=== PATIENT | male | born 1945 | race Caucasian/White ===

== ENCOUNTER 2021-04-08 09:12 | Inpatient (IN) | payer MEDICARE ==
[2021-04-08 10:08] LABS: #Basophils 0.1 10x3/uL (0.0-0.2); #Eosinphils 0.2 10x3/uL (0.0-0.5); #Monocytes 0.9 10x3/uL (0.0-1.1); #Neutrophils 6.1 10x3/uL (1.5-8.4); %Basophils 0.6 % (0.0-2.0); %Eosinophils 2.3 % (0.0-6.0); %Lymphocytes 21.4 % (18.0-47.0); %Monocytes 9.8 % (0.0-10.0); %Neutrophils 65.7 % (40.0-75.0); Hemoglobin 16.7 g/dL (13.5-17.5); Mean Corpuscular HGB CONC 35.3 g/dL (32.0-36.0); Mean Corpuscular Hemoglobin 30.8 pg (27.0-33.0); Mean Corpuscular Volume 87.3 fl (81.2-95.1); Mean Platelet Volume 9.9 fl (7.4-10.4); Platelet Count 179 10x3/uL (150-450); RBC Distribution Width 14.6 % (11.5-14.5); Red Blood Cell (RBC) Count 5.42 10x6/uL (4.32-5.72); White Blood Cell (WBC) Count 9.3 10x3/uL (3.5-10.5)
[2021-04-08 10:20] LABS: PTT 26.1 sec (22.0-33.0); Prothrombin Time 11.1 sec (9.5-12.1)
[2021-04-08 10:27] LABS: ALT (SGPT) 19 U/L (8-55); AST (SGOT) 19 U/L (5-34); Albumin 4.3 g/dL (3.4-4.8); Alkaline Phosphatase 56 U/L (40-110); Anion Gap 16 mmol/L (10-20); BUN (Urea Nitrogen) 18 mg/dL (8.4-25.7); Bilirubin, Total 0.6 mg/dL (0.2-1.2); Calc. Creatinine Clearance 0 mL/min (70-130); Calcium 9.8 mg/dL (7.8-10.44); Carbon Dioxide 26 mmol/L (23-31); Chloride 104 mmol/L (98-107); Globulin 3.7 g/dL (2.4-3.5); Glucose 112 mg/dL (83-110); Iron 52 ug/dL (65-175); Iron Binding Capacity, Total 290 mcg/dL (261-462); Lipase 18 U/L (8-78); Potassium 3.4 mmol/L (3.5-5.1); Sodium 143 mmol/L (136-145)
[2021-04-08 12:09] LABS: Bilirubin Neg (Negative); Blood, Urine 10 (Negative); Clarity Clear (Clear); Glucose, Urine (Dipstick) Normal (Negative); Ketone, Urine 5 mg/dL (Negative); Leukocyte Negative (Negative); Nitrite Negative (Negative); Protein, Urine (Dipstick) 100 mg/dl (Neg-Trace); Urobilinogen Normal mg/dL (Less than 2)
[2021-04-08 12:17] LABS: Bacteria/HPF Rare-Few HPF (None Seen); Mucous/LPF Rare LPF (<2+); RBC/HPF 0-3 HPF (0-3); Squamous Epithelial 0-3 HPF (0-3); WBC/HPF 0-3 HPF (0-3)
[2021-04-08] MEDS ORDERED: metroNIDAZOLE 500 MG/100 ML BAG ONE (13:50)
[2021-04-08] MEDS ORDERED: ALPRAZolam 0.5 MG TAB PO PRN (15:59)
[2021-04-08] MEDS ORDERED: Potassium Chloride 10 MEQ in Premix Bag 1 BAG IVPB SCH (16:00)
[2021-04-08] MEDS ORDERED: Electrolyte Replacement Protocol 1 EACH FS SCH (16:00)
[2021-04-08] MEDS ORDERED: Acetaminophen 325 MG TAB PO PRN (16:03)
[2021-04-08] MEDS ORDERED: Ondansetron PF 4 MG/2 ML Vial IVP PRN (16:03)
[2021-04-08 19:57] VITALS: BMI 30.8
[2021-04-08] MEDS ORDERED: Ciprofloxacin Lactate/D5W 200 MG in Premix Bag 1 BAG IVPB SCH (21:00)
[2021-04-08] MEDS: hydrALAZINE 25 MG TAB PO SCH (21:37)
[2021-04-08] MEDS: Famotidine 20 MG TAB PO SCH (21:38)
[2021-04-08] MEDS: Carvedilol 25 MG TAB PO SCH (21:38)
[2021-04-08] MEDS: Lisinopril 20 MG TAB PO SCH (21:38)
[2021-04-08] MEDS: metroNIDAZOLE 500 MG in Premix Bag 1 BAG IVPB SCH (21:44)
[2021-04-08] MEDS: Atorvastatin Calcium 10 MG TAB PO SCH (23:01)
[2021-04-09 05:30] LABS: #Eosinphils 0.2 10x3/uL (0.0-0.5); #Monocytes 0.7 10x3/uL (0.0-1.1); #Neutrophils 3.6 10x3/uL (1.5-8.4); %Basophils 0.5 % (0.0-2.0); %Eosinophils 3.6 % (0.0-6.0); %Lymphocytes 29.8 % (18.0-47.0); %Monocytes 10.4 % (0.0-10.0); %Neutrophils 55.4 % (40.0-75.0); Hemoglobin 13.9 g/dL (13.5-17.5); Mean Corpuscular HGB CONC 34.4 g/dL (32.0-36.0); Mean Corpuscular Hemoglobin 30.5 pg (27.0-33.0); Mean Corpuscular Volume 88.8 fl (81.2-95.1); Mean Platelet Volume 10.4 fl (7.4-10.4); Platelet Count 155 10x3/uL (150-450); RBC Distribution Width 14.4 % (11.5-14.5); Red Blood Cell (RBC) Count 4.55 10x6/uL (4.32-5.72); White Blood Cell (WBC) Count 6.5 10x3/uL (3.5-10.5)
[2021-04-09 05:36] LABS: Anion Gap 13 mmol/L (10-20); BUN (Urea Nitrogen) 18 mg/dL (8.4-25.7); Calc. Creatinine Clearance 99 mL/min (70-130); Calcium 8.7 mg/dL (7.8-10.44); Carbon Dioxide 25 mmol/L (23-31); Chloride 106 mmol/L (98-107); Glucose 88 mg/dL (83-110); Potassium 3.2 mmol/L (3.5-5.1); Sodium 141 mmol/L (136-145)
[2021-04-09] MEDS: metroNIDAZOLE 500 MG in Premix Bag 1 BAG IVPB SCH ×2 (05:51→17:53)
[2021-04-09] MEDS ORDERED: Potassium Chloride 20 MEQ TAB PO SCH ×2 (06:00→13:00)
[2021-04-09] MEDS ORDERED: Potassium Chloride 10 MEQ in Premix Bag 1 BAG IVPB SCH (08:00)
[2021-04-09] MEDS ORDERED: Clopidogrel Bisulfate 75 MG TAB PO SCH (09:00)
[2021-04-09] MEDS: Lisinopril 20 MG TAB PO SCH ×2 (10:02→20:48)
[2021-04-09] MEDS: Levothyroxine Sodium 100 MCG TAB PO SCH (10:03)
[2021-04-09] MEDS: Carvedilol 25 MG TAB PO SCH ×2 (10:03→20:49)
[2021-04-09] MEDS: Famotidine 20 MG TAB PO SCH ×2 (10:04→20:49)
[2021-04-09] MEDS: hydrALAZINE 25 MG TAB PO SCH ×3 (10:04→20:45)
[2021-04-09] MEDS: Amlodipine 5 MG TAB PO SCH (10:05)
[2021-04-09] MEDS: Hydrochlorothiazide 25 MG TAB PO SCH (10:05)
[2021-04-09] MEDS: Enoxaparin Sodium 40 MG/0.4 ML SYRINGE SC SCH (10:05)
[2021-04-09 11:57] LABS: Potassium 3.4 mmol/L (3.5-5.1)
[2021-04-09] MEDS ORDERED: Ciprofloxacin 500 MG TAB PO SCH (16:00)
[2021-04-09] MEDS ORDERED: metroNIDAZOLE 500 MG TAB PO SCH (16:00)
[2021-04-09 18:04] LABS: SARS-CoV-2 NAA Rapid Test Not Detected (NotDetected)
[2021-04-09 19:17] LABS: Potassium 3.8 mmol/L (3.5-5.1)
[2021-04-09] MEDS: metroNIDAZOLE 500 MG TAB PO SCH (20:47)
[2021-04-09] MEDS: Ciprofloxacin 500 MG TAB PO SCH (20:48)
[2021-04-09] MEDS: Atorvastatin Calcium 10 MG TAB PO SCH (20:49)
[2021-04-10 03:40] LABS: Hemoglobin 13.3 g/dL (13.5-17.5); Mean Corpuscular HGB CONC 34.6 g/dL (32.0-36.0); Mean Corpuscular Hemoglobin 30.6 pg (27.0-33.0); Mean Corpuscular Volume 88.3 fl (81.2-95.1); Mean Platelet Volume 10.2 fl (7.4-10.4); RBC Distribution Width 14.7 % (11.5-14.5); Red Blood Cell (RBC) Count 4.35 10x6/uL (4.32-5.72); White Blood Cell (WBC) Count 7.5 10x3/uL (3.5-10.5)
[2021-04-10 03:42] LABS: Platelet Count 141 10x3/uL (150-450)
[2021-04-10 03:49] LABS: Anion Gap 15 mmol/L (10-20); BUN (Urea Nitrogen) 26 mg/dL (8.4-25.7); Calc. Creatinine Clearance 66 mL/min (70-130); Calcium 8.6 mg/dL (7.8-10.44); Carbon Dioxide 20 mmol/L (23-31); Chloride 108 mmol/L (98-107); Glucose 97 mg/dL (83-110); Magnesium 1.8 mg/dL (1.6-2.6); Phosphorus 2.4 mg/dL (2.3-4.7); Potassium 3.2 mmol/L (3.5-5.1); Sodium 140 mmol/L (136-145)
[2021-04-10] MEDS ORDERED: Magnesium 2 GM/50 ML 2 GM in Premix Bag 1 BAG IVPB SCH (04:45)
[2021-04-10] MEDS: Ciprofloxacin 500 MG TAB PO SCH (05:29)
[2021-04-10] MEDS ORDERED: Potassium Chloride 20 MEQ TAB PO SCH (06:00)
[2021-04-10] MEDS: metroNIDAZOLE 500 MG TAB PO SCH (09:19)
[2021-04-10] MEDS: Enoxaparin Sodium 40 MG/0.4 ML SYRINGE SC SCH (09:20)
[2021-04-10] MEDS: hydrALAZINE 25 MG TAB PO SCH (09:25)
[2021-04-10] MEDS: Hydrochlorothiazide 25 MG TAB PO SCH (09:25)
[2021-04-10] MEDS: Famotidine 20 MG TAB PO SCH (09:25)
[2021-04-10] MEDS: Carvedilol 25 MG TAB PO SCH (09:25)
[2021-04-10] MEDS: Amlodipine 5 MG TAB PO SCH (09:25)
[2021-04-10] MEDS: Lisinopril 20 MG TAB PO SCH (09:25)
[2021-04-10] MEDS: Levothyroxine Sodium 100 MCG TAB PO SCH (09:25)
[2021-04-10 11:58] VITALS: TEMP 98.1
[2021-04-10 12:17] LABS: Potassium 4.2 mmol/L (3.5-5.1)
[2021-04-10 13:43] VITALS: BP 103/57
== END 2021-04-10 15:59 | disposition home or self-care (01) | DRG 392 ==
LOC: CSHERS 09:12 → CSHTELE 15:50
PROVIDERS: ADMIT Internal Medicine; ATTEND Internal Medicine
DX: K52.89 Other specified noninfective gastroenteritis and colitis (principal); C22.1 Intrahepatic bile duct carcinoma; I10 Essential (primary) hypertension; E78.5 Hyperlipidemia, unspecified; E87.6 Hypokalemia; Z20.822 Contact with and (suspected) exposure to COVID-19; F41.9 Anxiety disorder, unspecified; K83.8 Other specified diseases of biliary tract; Z85.46 Personal history of malignant neoplasm of prostate; Z88.8 Allergy status to other drugs, medicaments and biological substances; Z79.02 Long term (current) use of antithrombotics/antiplatelets; Z79.899 Other long term (current) drug therapy; Z87.891 Personal history of nicotine dependence; Z86.010 Personal history of colon polyps
CPT/HCPCS: 36415; 36416; 71045; 74177; 80048; 80053; 81003; 81015; 82728; 83540; 83550; 83690; 83735; 84100; 85025; 85027; 85610; 85730; 87070; 87081; 87205; 93005; 94760; J0744; J1650; J3480; U0002

== ENCOUNTER 2023-12-16 10:04 | Emergency (ER) | payer MEDICARE ==
[2023-12-16 11:51] LABS: ALT (SGPT) 21 U/L (8-55); AST (SGOT) 29 U/L (5-34); Alkaline Phosphatase 47 U/L (40-110); Anion Gap 17 mmol/L (10-20); BUN (Urea Nitrogen) 18 mg/dL (8.4-25.7); Bilirubin, Total 1.4 mg/dL (0.2-1.2); Calc. Creatinine Clearance 0 mL/min (70-130); Calcium 10.9 mg/dL (7.8-10.44); Carbon Dioxide 26 mmol/L (23-31); Chloride 100 mmol/L (98-107); Estimated GFR 68; Globulin 3.9 g/dL (2.4-3.5); Glucose 147 mg/dL (83-110); Potassium 3.6 mmol/L (3.5-5.1); Protein, Total 7.9 g/dL (5.8-8.1); Sodium 139 mmol/L (136-145)
[2023-12-16 12:03] LABS: Bilirubin Neg (Negative); Blood, Urine 150 (Negative); Clarity Cloudy (Clear); Glucose, Urine (Dipstick) Normal (Negative); Ketone, Urine 50 mg/dL (Negative); Leukocyte 100 (Negative); Nitrite Positive (Negative); Protein, Urine (Dipstick) 500 mg/dl (Neg-Trace); Urobilinogen Normal mg/dL (Less than 2)
[2023-12-16 12:16] LABS: Hemoglobin 16.4 g/dL (13.5-17.5); MDiff Complete? YES; Mean Corpuscular HGB CONC 34.9 g/dL (32.0-36.0); Mean Corpuscular Hemoglobin 31.3 pg (27.0-33.0); Mean Corpuscular Volume 89.7 fL (81.2-95.1); Mean Platelet Volume 10.6 fL (7.4-10.4); Platelet Count 151 10x3/uL (150-450); RBC Distribution Width 15.2 % (11.5-14.5); Red Blood Cell (RBC) Count 5.24 10x6/uL (4.32-5.72); White Blood Cell (WBC) Count 23.1 10x3/uL (3.5-10.5)
[2023-12-16 12:19] LABS: Band 5 % (5-11); Lymphocytes 7 % (21-51); Monocytes 5 % (0-10); Neutrophil 83 % (42-75)
[2023-12-16 12:20] LABS: Platelet Adequacy Comment Platelets Normal
[2023-12-16 12:21] LABS: Bacteria/HPF 4+ HPF (None Seen); CAUTI Indications for Culture Dysuria,urgency,freq; WBC/HPF Greater than 50 HPF (0-3)
[2023-12-16 12:22] LABS: Urine Culture Reflex Yes Yes
[2023-12-16] MEDS ORDERED: cefTRIAXone (ROCEPHIN) 1 GM VIAL ONE (12:27)
== END 2023-12-16 12:55 | disposition home or self-care (01) ==
LOC: CSHERS 10:04
DX: N39.0 Urinary tract infection, site not specified (principal); I10 Essential (primary) hypertension; Z55.6 Problems related to health literacy; Z79.899 Other long term (current) drug therapy; Z87.891 Personal history of nicotine dependence
CPT/HCPCS: 80053; 81001; 85025; 87077; 87086; 87186; J0696; 96374

== ENCOUNTER 2023-12-16 17:11 | Inpatient (IN) | payer MEDICARE ==
[2023-12-16 19:22] VITALS: BMI 30.8
[2023-12-16] MEDS ORDERED: Ondansetron PF 4 MG/2 ML Vial IVP PRN (20:31)
[2023-12-16] MEDS ORDERED: Glucagon 1 MG/ML KIT IM PRN (20:31)
[2023-12-16] MEDS ORDERED: Dextrose 5% in Water 1,000 ML IV PRN (20:31)
[2023-12-16] MEDS ORDERED: Insulin Lispro 100 UNIT/ML 10 ML VIAL SC PRN (20:31)
[2023-12-16] MEDS ORDERED: Calcium Carbonate 500 MG ChewTAB PO PRN (20:31)
[2023-12-16] MEDS ORDERED: Dextrose 50% Abboject 50 ML SYRINGE SLOW IVP PRN (20:31)
[2023-12-16] MEDS ORDERED: Senokot S 8.6-50 MG TAB PO PRN (20:31)
[2023-12-16] MEDS ORDERED: clonazePAM 0.5 MG TAB PO PRN (20:36)
[2023-12-16] MEDS: cefTRIAXone\\ROCEPHIN 1 GM in Sodium Chloride 0.9% 100 ML IVPB SCH (21:28)
[2023-12-16] MEDS: Atorvastatin Calcium 20 MG TAB PO SCH (21:30)
[2023-12-16] MEDS: Tamsulosin HCl 0.4 MG CAP PO SCH (21:30)
[2023-12-16] MEDS: Carvedilol 25 MG TAB PO SCH (21:30)
[2023-12-16] MEDS: Mirtazapine 15 MG TAB PO SCH (21:30)
[2023-12-16] MEDS: Lisinopril 20 MG TAB PO SCH (21:30)
[2023-12-16] MEDS: Ventolin HFA Inhaler 60 PUFF INHALER INH PRN (21:49)
[2023-12-16] MEDS: metroNIDAZOLE 500 MG in Premix 1 BAG IVPB SCH (23:02)
[2023-12-16] MEDS: Lactated Ringer's 1,000 ML IV SCH (23:03)
[2023-12-17] MEDS: Acetaminophen 325 MG TAB PO SCH (00:33)
[2023-12-17 04:29] LABS: Hemoglobin 14.1 g/dL (13.5-17.5); Mean Corpuscular HGB CONC 35.3 g/dL (32.0-36.0); Mean Corpuscular Hemoglobin 31.3 pg (27.0-33.0); Mean Corpuscular Volume 88.9 fL (81.2-95.1); Mean Platelet Volume 10.3 fL (7.4-10.4); Platelet Count 123 10x3/uL (150-450); White Blood Cell (WBC) Count 19.6 10x3/uL (3.5-10.5)
[2023-12-17 04:30] LABS: MDiff Complete? YES
[2023-12-17 04:32] LABS: Anion Gap 13 mmol/L (10-20); BUN (Urea Nitrogen) 17 mg/dL (8.4-25.7); Calc. Creatinine Clearance 81 mL/min (70-130); Calcium 9.3 mg/dL (7.8-10.44); Carbon Dioxide 23 mmol/L (23-31); Chloride 106 mmol/L (98-107); Estimated GFR 76; Glucose 142 mg/dL (83-110); Potassium 2.9 mmol/L (3.5-5.1); Sodium 139 mmol/L (136-145)
[2023-12-17 05:22] LABS: Band 8 % (5-11); Lymphocytes 4 % (21-51); Monocytes 3 % (0-10); Neutrophil 83 % (42-75); Reactive Lymphocytes 2 % (0-10)
[2023-12-17 05:26] LABS: Ovalocytes SLIGHT = 2-5 cells (100X) (0-1/hpf); Platelet Adequacy Comment Appears Adequate
[2023-12-17] MEDS ORDERED: Magnesium Sulfate/D5W 1 GM/100 ML BAG IVPB SCH (05:30)
[2023-12-17] MEDS: Levothyroxine Sodium 100 MCG TAB PO SCH (05:32)
[2023-12-17] MEDS: Magnesium Sulfate/D5W 1 GM in Premix 1 BAG IVPB SCH (05:32)
[2023-12-17] MEDS: Potassium Chloride 20 MEQ TAB PO SCH (05:32)
[2023-12-17] MEDS: metroNIDAZOLE 500 MG in Premix 1 BAG IVPB SCH (06:32)
[2023-12-17] MEDS: Isosorbide Mononitrate 30 MG ER.TAB PO SCH (08:56)
[2023-12-17] MEDS: Carvedilol 25 MG TAB PO SCH (08:57)
[2023-12-17] MEDS: Clopidogrel Bisulfate 75 MG TAB PO SCH (08:57)
[2023-12-17] MEDS: Pantoprazole DR 40 MG TAB PO SCH (08:57)
[2023-12-17] MEDS: Allopurinol 100 MG TAB PO SCH (08:57)
[2023-12-17] MEDS: Enoxaparin 40 MG (0.4 mL) SYRINGE SC SCH (08:58)
[2023-12-17] MEDS ORDERED: Amlodipine 5 MG TAB PO SCH (09:00)
[2023-12-17] MEDS: cefTRIAXone\\ROCEPHIN 2 GM in Sodium Chloride 0.9% 100 ML IVPB SCH (12:01)
[2023-12-17 14:20] LABS: Anion Gap 12 mmol/L (10-20); BUN (Urea Nitrogen) 26 mg/dL (8.4-25.7); Calc. Creatinine Clearance 62 mL/min (70-130); Calcium 9.5 mg/dL (7.8-10.44); Carbon Dioxide 24 mmol/L (23-31); Chloride 107 mmol/L (98-107); Estimated GFR 55; Glucose 195 mg/dL (83-110); Potassium 3.6 mmol/L (3.5-5.1); Sodium 139 mmol/L (136-145)
[2023-12-18 04:54] LABS: ALT (SGPT) 23 U/L (8-55); AST (SGOT) 33 U/L (5-34); Albumin 2.8 g/dL (3.4-4.8); Alkaline Phosphatase 42 U/L (40-110); Anion Gap 13 mmol/L (10-20); BUN (Urea Nitrogen) 34 mg/dL (8.4-25.7); Bilirubin, Total 0.5 mg/dL (0.2-1.2); Calc. Creatinine Clearance 68 mL/min (70-130); Calcium 9.7 mg/dL (7.8-10.44); Carbon Dioxide 23 mmol/L (23-31); Chloride 108 mmol/L (98-107); Estimated GFR 61; Globulin 3.5 g/dL (2.4-3.5); Glucose 128 mg/dL (83-110); Potassium 3.3 mmol/L (3.5-5.1); Protein, Total 6.3 g/dL (5.8-8.1); Sodium 141 mmol/L (136-145)
[2023-12-18 04:58] LABS: #Basophils 0.03 10x3/uL (0.0-0.2); #Eosinophils 0.02 10x3/uL (0.0-0.5); #Monocytes 1.19 10x3/uL (0.0-1.1); #Neutrophils 15.78 10x3/uL (1.5-8.4); %Basophils 0.2 % (0.0-2.0); %Eosinophils 0.1 % (0.0-6.0); %Monocytes 6.3 % (0.0-10.0); Hematocrit 37.2 % (38.8-50.0); Hemoglobin 13.2 g/dL (13.5-17.5); Mean Corpuscular HGB CONC 35.5 g/dL (32.0-36.0); Mean Corpuscular Hemoglobin 31.8 pg (27.0-33.0); Mean Corpuscular Volume 89.6 fL (81.2-95.1); Mean Platelet Volume 10.4 fL (7.4-10.4); Platelet Count 124 10x3/uL (150-450); RBC Distribution Width 15.3 % (11.5-14.5); Red Blood Cell (RBC) Count 4.15 10x6/uL (4.32-5.72); White Blood Cell (WBC) Count 18.4 10x3/uL (3.5-10.5)
[2023-12-18 09:44] LABS: ALT (SGPT) 24 U/L (8-55); AST (SGOT) 32 U/L (5-34); Albumin 2.8 g/dL (3.4-4.8); Alkaline Phosphatase 44 U/L (40-110); Anion Gap 12 mmol/L (10-20); BUN (Urea Nitrogen) 33 mg/dL (8.4-25.7); Bilirubin, Total 0.6 mg/dL (0.2-1.2); Calc. Creatinine Clearance 72 mL/min (70-130); Calcium 9.6 mg/dL (7.8-10.44); Carbon Dioxide 22 mmol/L (23-31); Chloride 109 mmol/L (98-107); Estimated GFR 66; Globulin 3.4 g/dL (2.4-3.5); Glucose 194 mg/dL (83-110); Potassium 3.3 mmol/L (3.5-5.1); Protein, Total 6.2 g/dL (5.8-8.1); Sodium 140 mmol/L (136-145)
[2023-12-18] MEDS: Potassium Chloride 20 MEQ TAB PO SCH ×2 (12:26→16:16)
[2023-12-19 05:22] LABS: Anion Gap 13 mmol/L (10-20); BUN (Urea Nitrogen) 31 mg/dL (8.4-25.7); Calc. Creatinine Clearance 84 mL/min (70-130); Calcium 9.8 mg/dL (7.8-10.44); Carbon Dioxide 23 mmol/L (23-31); Chloride 110 mmol/L (98-107); Estimated GFR 79; Glucose 113 mg/dL (83-110); Potassium 3.6 mmol/L (3.5-5.1); Sodium 142 mmol/L (136-145)
[2023-12-19] MEDS ORDERED: PROPOFOL 0 ML ONE (07:00)
[2023-12-19] MEDS ORDERED: Lidocaine 1% PF 5 ML VIAL ONE ×2 (07:00→08:37)
[2023-12-19] MEDS ORDERED: Rocuronium Bromide 10 MG/ML (10ML VIAL) ONE ×2 (07:00→08:37)
[2023-12-19] MEDS ORDERED: fentaNYL 50 mcg/mL 1 mL Vial ONE ×2 (07:00→09:23)
[2023-12-19] MEDS: Ipratropium/Albuterol 3 ML NEB NEB SCH ×2 (07:45→12:30)
[2023-12-19] MEDS ORDERED: CEFAZOLIN 2 GM VIAL ONE (08:05)
[2023-12-19] MEDS ORDERED: Bupivacaine/Epinephrine 0.25% 30 ML VIAL ONE (08:05)
[2023-12-19] MEDS ORDERED: ePHEDrine Sulfate 50 MG/10 ML VIAL ONE (08:17)
[2023-12-19] MEDS ORDERED: Dexmedetomidine 200 MCG/2 ML VIAL ONE (08:27)
[2023-12-19] MEDS ORDERED: PROPOFOL 20 ML ONE (08:37)
[2023-12-19] MEDS ORDERED: Ondansetron PF 4 MG/2 ML Vial ONE (08:47)
[2023-12-19] MEDS ORDERED: SUGAMMADEX SODIUM 200 MG/2 ML VIAL ONE (08:47)
[2023-12-19] MEDS: Morphine 2 MG/ML VIAL SLOW IVP SCH (11:36)
[2023-12-19 13:36] LABS: Hemoglobin A1c 5.5 % (4.0-6.0)
[2023-12-19] MEDS: traMADol HCl 50 MG TAB PO PRN (17:03)
[2023-12-19] MEDS: Carvedilol 12.5 MG TAB PO SCH (17:04)
[2023-12-20] MEDS: cloNIDine 0.1 MG TAB PO SCH (02:17)
[2023-12-20 03:41] LABS: #Basophils 0.01 10x3/uL (0.0-0.2); #Monocytes 0.57 10x3/uL (0.0-1.1); #Neutrophils 9.71 10x3/uL (1.5-8.4); %Basophils 0.1 % (0.0-2.0); %Lymphocytes 6.9 % (18.0-47.0); %Monocytes 5.1 % (0.0-10.0); %Neutrophils 87.6 % (40.0-75.0); Hematocrit 34.5 % (38.8-50.0); Hemoglobin 11.9 g/dL (13.5-17.5); Mean Corpuscular HGB CONC 34.5 g/dL (32.0-36.0); Mean Corpuscular Hemoglobin 30.9 pg (27.0-33.0); Mean Corpuscular Volume 89.6 fL (81.2-95.1); Mean Platelet Volume 10.6 fL (7.4-10.4); Platelet Count 148 10x3/uL (150-450); RBC Distribution Width 14.9 % (11.5-14.5); Red Blood Cell (RBC) Count 3.85 10x6/uL (4.32-5.72); White Blood Cell (WBC) Count 11.1 10x3/uL (3.5-10.5)
[2023-12-20 03:54] LABS: Anion Gap 13 mmol/L (10-20); BUN (Urea Nitrogen) 24 mg/dL (8.4-25.7); Calc. Creatinine Clearance 96 mL/min (70-130); Calcium 9.1 mg/dL (7.8-10.44); Carbon Dioxide 22 mmol/L (23-31); Chloride 109 mmol/L (98-107); Estimated GFR 88; Glucose 158 mg/dL (83-110); Potassium 3.8 mmol/L (3.5-5.1); Sodium 140 mmol/L (136-145)
[2023-12-21] MEDS: dilTIAZem 25 MG/5 ML VIAL SLOW IVP SCH (09:37)
[2023-12-21] MEDS: dilTIAZem 125 MG in Sodium Chloride 0.9% 100 ML IVPB SCH (09:44)
[2023-12-21] MEDS: Hydrochlorothiazide 25 MG TAB PO SCH (09:45)
[2023-12-21 12:03] LABS: Anion Gap 13 mmol/L (10-20); BUN (Urea Nitrogen) 20 mg/dL (8.4-25.7); Calc. Creatinine Clearance 96 mL/min (70-130); Calcium 9.8 mg/dL (7.8-10.44); Carbon Dioxide 25 mmol/L (23-31); Chloride 108 mmol/L (98-107); Estimated GFR 88; Glucose 132 mg/dL (83-110); Magnesium 1.7 mg/dL (1.6-2.6); Potassium 3.2 mmol/L (3.5-5.1); Sodium 143 mmol/L (136-145)
[2023-12-21 12:20] LABS: Free T4 (Free Thyroxine) 1.54 ng/dL (0.70-1.48); Thyroid Stimulating Hormone 0.9201 uIU/mL (0.35-4.94)
[2023-12-21] MEDS: Potassium Chloride 20 MEQ TAB PO SCH (14:09)
[2023-12-21] MEDS: Magnesium 2 GM/50 ML(in water) 2 GM in Premix 1 BAG IVPB SCH (14:10)
[2023-12-21] MEDS: Carvedilol 25 MG TAB PO SCH (17:10)
[2023-12-21] MEDS: Apixaban 5 MG TAB PO SCH (21:35)
[2023-12-22] MEDS: Guaifenesin DM 100-10/5 ML UDCUP PO PRN (06:00)
[2023-12-22 07:54] LABS: Anion Gap 15 mmol/L (10-20); BUN (Urea Nitrogen) 17 mg/dL (8.4-25.7); Calc. Creatinine Clearance 94 mL/min (70-130); Calcium 9.6 mg/dL (7.8-10.44); Carbon Dioxide 22 mmol/L (23-31); Chloride 108 mmol/L (98-107); Estimated GFR 88; Glucose 132 mg/dL (83-110); Magnesium 1.7 mg/dL (1.6-2.6); Potassium 3.6 mmol/L (3.5-5.1); Sodium 141 mmol/L (136-145)
[2023-12-22] MEDS: Amlodipine 10 MG TAB PO SCH (08:09)
[2023-12-22] MEDS: Hydrochlorothiazide 25 MG TAB PO SCH (08:10)
[2023-12-22 13:21] VITALS: BP 133/80; TEMP 98.4
[2023-12-22] MEDS ORDERED: Ciprofloxacin 500 MG TAB PO SCH (13:30)
[2023-12-22] MEDS ORDERED: Potassium Chloride 20 MEQ TAB PO SCH (17:00)
== END 2023-12-22 14:45 | disposition home or self-care (01) | DRG 853 ==
LOC: CSHTELE 18:28
PROVIDERS: ADMIT Family Medicine; ATTEND Hospitalist
PROC: 3E03329 Introduction of Other Anti-infective into Peripheral Vein, Percutaneous Approach (ICD-10-PCS; 2023-12-16)
PROC: 0FT44ZZ Resection of Gallbladder, Percutaneous Endoscopic Approach (ICD-10-PCS; principal; 2023-12-19)
DX: A41.50 Gram-negative sepsis, unspecified (principal); G93.41 Metabolic encephalopathy; N39.0 Urinary tract infection, site not specified; K80.00 Calculus of gallbladder with acute cholecystitis without obstruction; E86.0 Dehydration; I10 Essential (primary) hypertension; I73.9 Peripheral vascular disease, unspecified; F41.9 Anxiety disorder, unspecified; E03.9 Hypothyroidism, unspecified; J44.9 Chronic obstructive pulmonary disease, unspecified; E87.6 Hypokalemia; I48.91 Unspecified atrial fibrillation; E78.2 Mixed hyperlipidemia; M10.9 Gout, unspecified; N40.0 Benign prostatic hyperplasia without lower urinary tract symptoms; I25.119 Atherosclerotic heart disease of native coronary artery with unspecified angina pectoris; Z87.891 Personal history of nicotine dependence; Z98.890 Other specified postprocedural states; Z82.49 Family history of ischemic heart disease and other diseases of the circulatory system; Z79.899 Other long term (current) drug therapy
CPT/HCPCS: 36415; 36416; 71046; 74176; 76705; 80048; 80053; 81001; 82607; 83036; 83735; 84439; 84443; 85025; 86140; 87077; 87086; 87186; 88304; 93005; 93010; 94640; 94760; 96374; C1889; J0696; J1650; J2272; J2405; J2704; J3010; J3475; J7120; J7620